=== PATIENT | female | born 1975 ===

== ENCOUNTER 2017-12-12 20:47 | Emergency (ER) | payer OTHER ==
[2017-12-12 21:20] VITALS: TEMP 98.8
--- NOTE | 2017-12-12 21:55 | C.PDOC ---
History Of Present Illness 42 y/o female with history of Hypothyroidism presents to ED with c/o of intermittent left abdominal pain radiating to left side 02/08. Patient reports mild relief with motrin and admits to nausea. Patient reports x2 episode of loose stool today and denies fever, vomiting dysuria, sick contacts, urinary frequency or any other complaints at this time. LMP now, irregular as per patient Time Seen by Provider: 12/12/17 21:29 Chief Complaint (Nursing): Abdominal Pain History Per: Patient History/Exam Limitations: no limitations Onset/Duration Of Symptoms: Days Current Symptoms Are (Timing): Still Present Location Of Pain/Discomfort: LUQ, LLQ Radiation Of Pain To:: Flank Past Medical History Reviewed: Historical Data, Nursing Documentation, Vital Signs Vital Signs: Last Vital Signs Temp 98.8 F 12/12/17 21:15 Pulse 77 12/12/17 21:15 Resp 16 12/12/17 21:15 BP 99/64 L 12/12/17 21:15 Pulse Ox 100 12/13/17 00:27 - Medical History PMH: Hypothyroidism, Kidney Stones Surgical History: Cholecystectomy (8 yrs. ago) Family History: States: No Known Family Hx - Social History Hx Alcohol Use: No Hx Substance Use: No - Immunization History Hx Tetanus Toxoid Vaccination: Yes Hx Influenza Vaccination: Yes Hx Pneumococcal Vaccination: No Review Of Systems Constitutional: Negative for: Fever, Chills Cardiovascular: Negative for: Chest Pain Gastrointestinal: Positive for: Nausea, Abdominal Pain. Negative for: Vomiting , Diarrhea Genitourinary: Negative for: Dysuria, Frequency Skin: Negative for: Rash Physical Exam - Physical Exam Appears: Non-toxic, No Acute Distress Skin: Warm, Dry, No Rash Head: Atraumatic, Normacephalic Eye(s): bilateral: Normal Inspection Oral Mucosa: Moist Neck: Normal ROM, Supple Cardiovascular: Rhythm Regular Respiratory: Normal Breath Sounds, No Rales, No Rhonchi, No Wheezing Gastrointestinal/Abdominal: Soft, Tenderness (Left sided), No Guarding, No Rebound Back: No CVA Tenderness, No Paraspinal Tenderness Extremity: Normal ROM, Capillary Refill (<2 seconds) Neurological/Psych: Oriented x3, Normal Speech, Normal Cognition ED Course And Treatment - Laboratory Results Result Diagrams: 12/12/17 22:07 12/12/17 22:07 Lab Interpretation: No Acute Changes O2 Sat by Pulse Oximetry: 100 (RA) Pulse Ox Interpretation: Normal - CT Scan/US CT abd/pel Other Rad Studies (CT/US): Read By Radiologist, Radiology Report Reviewed CT/US Interpretation: EXAM: CT Abdomen and Pelvis With Intravenous Contrast. CLINICAL HISTORY: 42 years old, female; Pain; Abdominal pain; Patient HX: Left abd pain, ho kidney stone. TECHNIQUE: Axial computed tomography images of the abdomen and pelvis with intravenous contrast. All CT. scans at this facility use one or more dose reduction techniques, viz.: automated exposure control;. ma/kV adjustment per patient size (including targeted exams where dose is matched to indication; i.e. head); or iterative reconstruction technique. CONTRAST: 100 mL of [id number] administered intravenously. COMPARISON: CT - ABD PELVIS W/O PO OR IV CONT 2015-06-04 11:52. FINDINGS: Lung bases: Unremarkable. No mass. No consolidation. ABDOMEN: Liver: Unremarkable. No mass. Gallbladder and bile ducts: Post cholecystectomy. No ductal dilation. Pancreas: Unremarkable. No mass. No ductal dilation. Spleen: Unremarkable. No splenomegaly. Adrenals: Unremarkable. No mass. Kidneys and ureters: Unremarkable. No solid mass. No hydronephrosis. Stomach and bowel: Unremarkable. No obstruction. No mucosal thickening. PELVIS: Appendix: No findings to suggest acute appendicitis. Bladder: Unremarkable. No mass. Reproductive: 2.7 cm left ovarian cyst or follicle. IUD which is within the lower uterine segment. ABDOMEN and PELVIS: Intraperitoneal space: Unremarkable. No free air. No significant fluid collection. Bones/joints: No acute fracture. No dislocation. Soft tissues: Small fat containing umbilical hernia. Vasculature: Unremarkable. No abdominal aortic aneurysm. Lymph nodes: Unremarkable. No enlarged lymph nodes. IMPRESSION: No definitive acute abnormality. Incidental findings as above. Reevaluation Time: 00:32 Reassessment Condition: Improved (Patient remains comfortable and sleeping on stretcher.) Disposition Counseled Patient/Family Regarding: Studies Performed, Diagnosis, Need For Followup, Rx Given - Disposition Referrals: [facility] [Outside] Disposition: HOME/ ROUTINE Disposition Time: 00:33 Condition: STABLE Prescriptions: Naproxen [Naprosyn] 1 tab PO BID PRN #25 tab PRN Reason: Pain Instructions: Ovarian Cysts Forms: [employer] (Persian) - Clinical Impression Clinical Impression: Ovarian cyst, Abdominal pain - Scribe Statement The provider has reviewed the documentation as recorded by the Joelibe Bushra Ontiveros All medical record entries made by the Joelibcarola were at my direction and personally dictated by me. I have reviewed the chart and agree that the record accurately reflects my personal performance of the history, physical exam, medical decision making, and the department course for this patient. I have also personally directed, reviewed, and agree with the discharge instructions and disposition.
[2017-12-12] MEDS ORDERED: Iohexol 240 (50 ml) PO STA (21:58)
[2017-12-12] MEDS ORDERED: Iodixanol 320 MG/ML 100 ML BOTTLE IV ONE (22:09)
[2017-12-12] MEDS ORDERED: Iohexol 240 (50 ml) ONE (22:09)
[2017-12-12 22:10] LABS: BASO # 0.1 K/uL (0.0-0.2); BASO % 0.9 % (0.0-2.0); EOS # 0.3 K/uL (0.0-0.7); EOS % 4.9 % (0.0-4.0); LYMPH # 2.8 K/uL (1.0-4.3); LYMPH % 47.4 % (20.0-40.0); MEAN CORPUSCULAR HGB CONC 31.3 g/dL (33.0-37.0); MEAN PLATELET VOLUME 6.9 fL (7.2-11.7); MONO # 0.5 K/uL (0.0-0.8); MONO % 8.5 % (0.0-10.0); NEUT # 2.3 K/uL (1.8-7.0); NEUT % 38.3 % (50.0-75.0); NRBC % 0.1 % (0.0-2.0); RBC 4.76 Mil/uL (3.80-5.20); RED CELL DISTRIBUTION WIDTH 17.5 % (11.5-14.5); WHITE BLOOD COUNT 5.9 K/uL (4.8-10.8)
[2017-12-12 22:13] LABS: HCG,QUALITATIVE URINE NEGATIVE (NEGATIVE); SQUAMOUS EPITHIAL 2 /hpf (0-5); URINE BILIRUBIN NEGATIVE (NEGATIVE); URINE BLOOD 3+ (NEGATIVE); URINE CLARITY Clear (Clear); URINE COLOR Yellow (YELLOW); URINE GLUCOSE (UA) NORMAL (Normal); URINE LEUKOCYTE ESTERASE TRACE Leu/uL (Negative); URINE PROTEIN NEGATIVE (NEGATIVE); URINE UROBILINOGEN NORMAL mg/dL (0.2-1.0)
[2017-12-12 22:18] LABS: MEAN CELL VOLUME 67.3 fL (81.0-99.0)
[2017-12-12 22:23] LABS: ALB/GLOB RATIO 1.4 (1.0-2.1); ALBUMIN 4.2 g/dL (3.5-5.0); ALT/SGPT 215 U/L (9-52); AST/SGOT 148 U/L (14-36); BLOOD UREA NITROGEN 6 mg/dL (7-17); GFR AFRICAN-AMERICAN > 60; GFR NON-AFRICAN AMERICAN > 60; LIPASE 134 U/L (23-300)
[2017-12-13 01:21] VITALS: BP 142/79; PULSE 88; RESP 20; O2SAT 97
--- NOTE | 2017-12-13 10:04 | CT ---
PROCEDURE: CT Abdomen and Pelvis without intravenous contrast HISTORY: Abdominal pain COMPARISON: CT abdomen and pelvis dated 06/04/2015 TECHNIQUE: Multiple contiguous axial images were performed through the abdomen and pelvis with intravenous contrast. Subsequently, sagittal and coronal reformatted images were obtained. Contrast dose: 100 cc of Visipaque 320 intravenous contrast. Radiation dose: Total exam DLP = 456 mGy-cm. This CT exam was performed using one or more of the following dose reduction techniques: Automated exposure control, adjustment of the mA and/or kV according to patient size, and/or use of iterative reconstruction technique. FINDINGS: LOWER THORAX: Unremarkable. LIVER: Unremarkable. No gross lesion or ductal dilatation. GALLBLADDER AND BILE DUCTS: Status post prior cholecystectomy. PANCREAS: Unremarkable. No gross lesion or ductal dilatation. SPLEEN: Unremarkable. ADRENALS: Unremarkable. No mass. KIDNEYS AND URETERS: Unremarkable. No hydronephrosis. No solid mass. VASCULATURE: Unremarkable. No aortic aneurysm. BOWEL: Unremarkable. No obstruction. No gross mural thickening. APPENDIX: No findings to suggest acute appendicitis. PERITONEUM: Unremarkable. No free fluid. No free air. LYMPH NODES: Unremarkable. No enlarged lymph nodes. BLADDER: Unremarkable. REPRODUCTIVE: 2.7 centimeter left ovarian cyst or follicle. IUD which is noted within the lower uterine segment. Fluid within the endometrial canal. Clinical correlation. BONES: No acute fracture. OTHER FINDINGS: Small fat containing umbilical hernia. IMPRESSION: 2.7 centimeter left ovarian cyst or follicle. IUD which is noted within the lower uterine segment. Fluid within the endometrial canal. Clinical correlation. Additional findings as above. These findings were preliminarily reported at 12:23 a.m. on 12/13/[address] Edward Jorge from [employer].
== END 2017-12-13 01:10 | disposition home or self-care (01) ==
LOC: C.ER 20:47
DX: N83.202 Unspecified ovarian cyst, left side (principal); R10.9 Unspecified abdominal pain
CPT/HCPCS: 36415; 74177; 80053; 81001; 83690; 84703; 85025; 94770; 99285; Q9966; Q9967

== ENCOUNTER 2018-07-17 11:37 | Emergency (ER) | payer OTHER ==
[2018-07-17 11:49] VITALS: TEMP 98.1; O2SAT 100
[2018-07-17] MEDS ORDERED: Sodium Chloride 0.9% 1,000 ML IV ONE (12:21)
--- NOTE | 2018-07-17 12:33 | C.PDOC ---
History Of Present Illness 42 year old female presents to the ED with complaints of vaginal bleeding for 2 months. She now reports feeling weak and dizzy. Patient denies having any prior medical problems, however takes levothyroxine. Otherwise she denies any a bdominal pain, vomiting, diarrhea, vaginal discharge, chest pain, fevers, or chills. Time Seen by Provider: 07/17/18 12:07 Chief Complaint (Nursing): Female Genitourinary History Per: Patient History/Exam Limitations: no limitations Onset/Duration Of Symptoms: Days Current Symptoms Are (Timing): Still Present Alleviating Factors: None Abnormal Vaginal Bleeding: Yes Past Medical History Reviewed: Historical Data, Nursing Documentation, Vital Signs Vital Signs: Last Vital Signs Temp 98.1 F 07/17/18 11:45 Pulse 96 H 07/17/18 11:45 Resp 18 07/17/18 11:45 BP 116/64 07/17/18 11:45 Pulse Ox 100 07/17/18 11:45 - Medical History PMH: Hypothyroidism, Kidney Stones, Chronic Kidney Disease Surgical History: Cholecystectomy (8 yrs. ago) Family History: States: No Known Family Hx - Social History Hx Alcohol Use: No Hx Substance Use: No - Immunization History Hx Tetanus Toxoid Vaccination: Yes Hx Influenza Vaccination: Yes Hx Pneumococcal Vaccination: Yes Review Of Systems Constitutional: Positive for: Weakness (generalized). Negative for: Fever, Chills Cardiovascular: Negative for: Chest Pain Respiratory: Negative for: Shortness of Breath Gastrointestinal: Negative for: Nausea, Vomiting, Abdominal Pain, Diarrhea Genitourinary: Positive for: Vaginal Bleeding. Negative for: Dysuria, Freque ncy, Vaginal Discharge Neurological: Positive for: Dizziness. Negative for: Weakness, Numbness, Headache Physical Exam - Physical Exam Appears: Non-toxic, No Acute Distress Skin: Warm, Dry, No Pale Head: Atraumatic, Normacephalic Eye(s): bilateral: Normal Inspection (no conjunctival pallor), PERRL, EOMI Oral Mucosa: Moist Lips: Normal Appearing Neck: Normal ROM Chest: Symmetrical Cardiovascular: Rhythm Regular, No Murmur Respiratory: Normal Breath Sounds, No Accessory Muscle Use Gastrointestinal/Abdominal: Bowel Sounds (active), Soft, No Tenderness, No Distention Extremity: Bilateral: Atraumatic, Normal Color And Temperature, Normal ROM Neurological/Psych: Oriented x3, Normal Speech ED Course And Treatment - Laboratory Results Result Diagrams: 07/17/18 12:34 07/17/18 12:34 Lab Interpretation: No Acute Changes Urine POC: Negative O2 Sat by Pulse Oximetry: 100 (RA) Pulse Ox Interpretation: Normal - CT Scan/US No standard instances Other Rad Studies (CT/US): Read By Radiologist, Radiology Report Reviewed CT/US Interpretation: FINDINGS: UTERUS: Measures 10.7 x 5.1 x 6.2 cm. Normal in size and appearance. Heterogeneous myometrial echotexture is identified. There is a hyperechoic enhancing fibroid identified at the submucous mid right fundus anteriorly, measuring 2.1 x 1.9 x 1.9 cm. No additional uterine mass identified. ENDOMETRIUM: Measures 11.4 mm in diameter. Unremarkable. CERVIX: Two small nabothian cysts are identified the anterior as well as posterior cervix. Cervix otherwise appears unremarkable. RIGHT OVARY: Measures 2.4 x 1.9 x 2.7 cm. No solid mass. Normal flow. 1.7 x 1.1 x 1.1 cm cyst is seen related to the right ovary will with the right ovary otherwise unremarkable. LEFT OVARY: Measures 2.4 x 1.4 x 2.2 cm. No solid mass. Normal flow. FREE FLUID: No significant free fluid noted. OTHER FINDINGS: None. IMPRESSION: 1. 2.1 cm submucous fibroid mid anterior fundus. No additional uterine mass identified. Prior posterior fundal fibroid not identified. 2. Probable dominant follicle right ovary. 3. Nabothian cysts are identified at the cervix. 4. Prior IUD not identified with the current appearance of the endometrium unremarkable. Progress Note: Treated with IVF NSS. 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 - Scribe Statement The provider has reviewed the documentation as recorded by the Joelibcarola Segovia All medical record entries made by the Carlos were at my direction and personally dictated by me. I have reviewed the chart and agree that the record accurately reflects my personal performance of the history, physical exam, medical decision making, and the department course for this patient. I have also personally directed, reviewed, and agree with the discharge instructions and disposition.
[2018-07-17] MEDS ORDERED: Sodium Chloride 0.9% 1,000 ML ONE (12:34)
[2018-07-17 12:47] LABS: BASO % 0.8 % (0.0-2.0); EOS # 0.1 K/uL (0.0-0.7); EOS % 1.8 % (0.0-4.0); HEMOGLOBIN 9.5 g/dL (11.0-16.0); LYMPH # 2.4 K/uL (1.0-4.3); LYMPH % 41.4 % (20.0-40.0); MEAN CORPUSCULAR HEMOGLOBIN 20.7 pg (27.0-31.0); MEAN CORPUSCULAR HGB CONC 31.4 g/dL (33.0-37.0); MEAN PLATELET VOLUME 7.2 fL (7.2-11.7); MONO # 0.4 K/uL (0.0-0.8); MONO % 6.3 % (0.0-10.0); NEUT # 2.9 K/uL (1.8-7.0); NEUT % 49.7 % (50.0-75.0); NRBC % 0.1 % (0.0-2.0); RBC 4.57 Mil/uL (3.80-5.20); RED CELL DISTRIBUTION WIDTH 19.8 % (11.5-14.5); WHITE BLOOD COUNT 5.8 K/uL (4.8-10.8)
[2018-07-17 12:51] LABS: HCG,QUALITATIVE URINE NEGATIVE (NEGATIVE)
[2018-07-17 12:52] LABS: MEAN CELL VOLUME 66.1 fL (81.0-99.0)
[2018-07-17 12:57] LABS: ALB/GLOB RATIO 1.5 (1.0-2.1); ALBUMIN 4.7 g/dL (3.5-5.0); ALT/SGPT 64 U/L (9-52); AST/SGOT 60 U/L (14-36); BLOOD UREA NITROGEN 8 mg/dL (7-17); CALCIUM 8.7 mg/dl (8.6-10.4); GFR NON-AFRICAN AMERICAN > 60
[2018-07-17 13:03] LABS: SQUAMOUS EPITHIAL 1 /hpf (0-5); URINE BILIRUBIN NEGATIVE (NEGATIVE); URINE BLOOD 2+ (NEGATIVE); URINE CLARITY Clear (Clear); URINE COLOR Yellow (YELLOW); URINE GLUCOSE (UA) NORMAL (Normal); URINE LEUKOCYTE ESTERASE NEG Leu/uL (Negative); URINE PROTEIN NEGATIVE (NEGATIVE)
[2018-07-17 15:34] VITALS: BP 107/67; PULSE 86; RESP 17
--- NOTE | 2018-07-17 15:56 | US ---
Date of service: 07/17/2018 HISTORY: vaginal bleeding COMPARISON: Transvaginal pelvic ultrasound 05/28/2017. TECHNIQUE: Transvaginal pelvic ultrasound was performed with longitudinal and transverse images submitted for interpretation. FINDINGS: UTERUS: Measures 10.7 x 5.1 x 6.2 cm. Normal in size and appearance. Heterogeneous myometrial echotexture is identified. There is a hyperechoic enhancing fibroid identified at the submucous mid right fundus anteriorly, measuring 2.1 x 1.9 x 1.9 cm. No additional uterine mass identified. ENDOMETRIUM: Measures 11.4 mm in diameter. Unremarkable. CERVIX: Two small nabothian cysts are identified the anterior as well as posterior cervix. Cervix otherwise appears unremarkable. RIGHT OVARY: Measures 2.4 x 1.9 x 2.7 cm. No solid mass. Normal flow. 1.7 x 1.1 x 1.1 cm cyst is seen related to the right ovary will with the right ovary otherwise unremarkable. LEFT OVARY: Measures 2.4 x 1.4 x 2.2 cm. No solid mass. Normal flow. FREE FLUID: No significant free fluid noted. OTHER FINDINGS: None. IMPRESSION: 1. 2.1 cm submucous fibroid mid anterior fundus. No additional uterine mass identified. Prior posterior fundal fibroid not identified. 2. Probable dominant follicle right ovary. 3. Nabothian cysts are identified at the cervix. 4. Prior IUD not identified with the current appearance of the endometrium unremarkable.
== END 2018-07-17 16:35 | disposition home or self-care (01) ==
LOC: C.ER 11:37
DX: D25.9 Leiomyoma of uterus, unspecified (principal); R10.9 Unspecified abdominal pain
CPT/HCPCS: 76830; 80053; 81001; 84703; 85025; 96360; 99285; J7030

== ENCOUNTER 2018-07-30 09:25 | Outpatient (CLI) | payer OTHER | END 2018-07-30 09:26 | disposition home or self-care (01) | LOC: C.LAB 09:25 | DX: R94.5 Abnormal results of liver function studies (principal); N92.6 Irregular menstruation, unspecified ==

== ENCOUNTER 2018-07-30 09:29 | Outpatient (CLI) | payer OTHER | END 2018-07-30 09:30 | disposition home or self-care (01) | LOC: C.LAB 09:29 | DX: E78.2 Mixed hyperlipidemia (principal) ==

== ENCOUNTER 2018-08-14 13:44 | Outpatient (CLI) | payer OTHER | END 2018-08-14 13:45 | disposition home or self-care (01) | LOC: C.LAB 13:44 ==

== ENCOUNTER 2018-09-20 20:36 | Emergency (ER) | payer OTHER ==
[2018-09-20 20:54] VITALS: BP 129/72; PULSE 77; RESP 20; TEMP 98.7; O2SAT 100
--- NOTE | 2018-09-20 21:48 | C.PDOC ---
History Of Present Illness 43 y/o female c/o pain to left thumb x 1 week with no recalled injury. no numbness or tingling. Time Seen by Provider: 09/20/18 20:58 Chief Complaint (Nursing): Upper Extremity Problem/Injury History Per: Patient History/Exam Limitations: no limitations Onset/Duration Of Symptoms: Days (7) Current Symptoms Are (Timing): Still Present Quality: "Pain" Past Medical History Reviewed: Historical Data, Nursing Documentation, Vital Signs Vital Signs: Last Vital Signs Temp 98.7 F 09/20/18 20:49 Pulse 77 09/20/18 20:49 Resp 20 09/20/18 20:49 BP 129/72 09/20/18 20:49 Pulse Ox 100 09/20/18 20:49 - Medical History PMH: Hypothyroidism, Kidney Stones, Chronic Kidney Disease Surgical History: Cholecystectomy (8 yrs. ago) Family History: States: Unknown Family Hx - Social History Hx Alcohol Use: No Hx Substance Use: No - Immunization History Hx Tetanus Toxoid Vaccination: Yes Hx Influenza Vaccination: Yes Hx Pneumococcal Vaccination: Yes Review Of Systems Constitutional: Negative for: Fever, Chills ENT: Negative for: Ear Pain, Throat Pain Cardiovascular: Negative for: Chest Pain Respiratory: Negative for: Cough Musculoskeletal: Positive for: Other (thumb pain) Skin: Negative for: Rash, Bruising Neurological: Negative for: Weakness, Numbness Physical Exam - Physical Exam Appears: Non-toxic, No Acute Distress Skin: Warm, Dry Head: Atraumatic, Normacephalic Eye(s): bilateral: Normal Inspection Neck: Supple Extremity: Other (clicking to left first ip joint with flexion. tender to base of proximal left first phalanx, no swelling. erythema or warmth noted, from at wrist and elbow, all other fingers with from. ) Pulses: Left Radial: Normal Neurological/Psych: Oriented x3, Normal Speech, Normal Cognition ED Course And Treatment O2 Sat by Pulse Oximetry: 100 Medical Decision Making Medical Decision Making: xray neg for fracture. pt declines toradol. splint applied. d/c home and f/u hand / Disposition Counseled Patient/Family Regarding: Studies Performed, Diagnosis, Need For Followup, Rx Given - Disposition Referrals: Mando Griffith MD [Staff Provider] - Disposition: HOME/ ROUTINE Disposition Time: 22:22 Condition: GOOD Additional Instructions: Wear splint for comfort, Take ibuprofen for pain. Follow up with hand surgeon. Forms: Gen Discharge Inst [place], [facility] ([place]ican) - Clinical Impression Clinical Impression: Left thumb sprain
--- NOTE | 2018-09-21 18:35 | RAD ---
Date of service: 09/20/2018 PROCEDURE: Left Thumb radiographs. HISTORY: unable to flex at ip joint COMPARISON: None. TECHNIQUE: AP radiograph of the left hand, as well as spot oblique and lateral images of thumb were obtained. FINDINGS: LEFT THUMB: Normal left thumb, without fracture or focal lesion. Remainder of the left hand (as seen on the AP view) grossly unremarkable. JOINTS: Normal. SOFT TISSUES: Normal. OTHER FINDINGS: None. IMPRESSION: Normal left thumb radiographs.
== END 2018-09-20 22:25 | disposition home or self-care (01) ==
LOC: C.ER 20:36
DX: S63.602A Unspecified sprain of left thumb, initial encounter (principal); X58.XXXA Exposure to other specified factors, initial encounter

== ENCOUNTER 2018-10-09 09:03 | Outpatient (CLI) | payer OTHER | END 2018-10-09 09:04 | disposition home or self-care (01) | LOC: C.MAMMO 09:03 ==